=== PATIENT | male | born 1990 | race American Indian/Alaskan Native ===

== ENCOUNTER 2017-03-25 03:44 | Emergency (ER) | payer OTHER ==
[2017-03-25] MEDS ORDERED: MOTRIN ONE (06:07)
[2017-03-25] MEDS ORDERED: MOTRIN PO ONE (06:08)
--- NOTE | 2017-03-25 06:28 | Emergency Department Report ---
Chief Complaint: Fever Stated Complaint: FEVER,LIGHT HEADED,SWEATING Time Seen by Provider: 03/25/17 06:25 - HPI History of Present Illness: Patient reports that he has cough, fever and body aches 2 days. Denies any vomiting or diarrhea. - ROS Review of Systems: All systems is negative unless stated in HPI above - Exam Vital Signs: Vital Signs 03/25/17 03/25/17 04:14 04:28 Temperature 100.6 F H 100.6 F H Pulse Rate 92 H 97 H Respiratory 18 17 Rate Blood Pressure 147/100 147/100 O2 Sat by Pulse 98 99 Oximetry Physical Exam: General: His is a 26-year-old male well-nourished well-developed in no acute distress. Patient is nontoxic in appearance MSE screening note: Focused history and physical exam performed. Due to findings the following was ordered: Ibuprofen and oral hydration ED Medical Decision Making - Medical Decision Making MDM:Pt medically screened. Oral hydration started. Motrin 800 mg by mouth given. Pt to be seen by oncoming provider. ED Disposition for MSE Condition: Stable Referrals: MIK CLEMENTS MD [Primary Care Provider] - 3-5 Days
--- NOTE | 2017-03-25 07:44 | Emergency Department Report ---
Minor Respiratory - HPI Chief Complaint: Fever Stated Complaint: FEVER,LIGHT HEADED,SWEATING Time Seen by Provider: 03/25/17 06:25 Severity: moderate Minor Respiratory: Yes Rhinorrhea, Yes Sore Throat, Yes Able to Tolerate Fluids , Yes Cough, Yes Fever, No Ear Pain, No Sick Contacts, No Hemoptysis, No Chest Pain, No Shortness of Breath Other History: he is a 26-year-old male with no prior medical history who presents to ED complaining of nonproductive dry cough, runny nose and body aches times the past 3 days. Patient states he's been taking Tylenol for symptom relief. Patient stat he does not recall being around any sick contacts and has not been outside the country the past 30 days. He denies nausea, vomiting, abdominal pain, chest pain shortness of breath or any other problems. ED Review of Systems ROS: Stated complaint: FEVER,LIGHT HEADED,SWEATING Other details as noted in HPI Constitutional: denies: chills, fever Eyes: denies: eye pain, eye discharge, vision change ENT: denies: ear pain, throat pain Respiratory: denies: cough, shortness of breath, wheezing Cardiovascular: denies: chest pain, palpitations Endocrine: no symptoms reported Gastrointestinal: denies: abdominal pain, nausea, diarrhea Genitourinary: denies: urgency, dysuria Musculoskeletal: denies: back pain, joint swelling, arthralgia Skin: denies: rash, lesions Neurological: denies: headache, weakness, paresthesias Psychiatric: denies: anxiety, depression Hematological/Lymphatic: denies: easy bleeding, easy bruising ED Past Medical Hx - Past Medical History Previous Medical History?: No - Surgical History Past Surgical History?: Yes Additional Surgical History: hernia repair - Social History Smoking Status: Current Every Day Smoker Substance Use Type: None - Medications Home Medications: Home Medications Medication Instructions Recorded Confirmed Last Taken Type HYDROcodone/ACETAMINOPHEN 1 tab PO Q6H PRN 03/28/13 03/28/13 03/28/13 14:00 History [Hydrocodon-Acetaminophen 5-300 mg] oxyCODONE /ACETAMINOPHEN [Percocet 1 tab PO Q6HR PRN 03/28/13 03/28/13 03/28/13 14:00 History 5/325 mg] Naproxen Sodium [Aleve] 220 mg PO Q8H PRN #50 tablet 03/29/13 Unknown Rx D-Methorphan/PE/Acetaminophen 1 each PO Q6H #30 tablet 03/25/17 Unknown Rx [Tylenol Cold Max Day Caplet] Ibuprofen [Motrin] 800 mg PO Q8HR PRN #30 tablet 03/25/17 Unknown Rx guaiFENesin [Robitussin] 200 mg PO Q6HR #24 tablet 03/25/17 Unknown Rx Minor Respiratory Exam - Exam General: Vital signs noted. No distress. Alert and acting appropriately. HEENT: Yes Moist Mucous Membranes, No Pharyngeal Erythema, No Pharyngeal Exudates, No Rhinorrhea, No Conjuctival Injection, No Frontal Tenderness, No Maxillary Tenderness Ear: Neither TM Bulge, Neither TM Erythema, Neither EAC Pain, Neither EAC Discharge Neck: Yes Supple, No Adenopathy Lungs: Yes Good Air Exchange, No Wheezes, No Ronchi, No Stridor, No Cough, No Labored Respirations, No Retractions, No Use of Accessory Muscles, No Other Abnormal Lung Sounds Heart: Yes Regular, No Murmur Abdomen: Yes Normal Bowel Sounds, No Tenderness, No Peritoneal Signs Skin: No Rash, No Edema Neurologic: Alert and oriented, no deficits. Musculoskeletal: Unremarkable. ED Course Vital Signs 03/25/17 03/25/17 04:14 04:28 Temperature 100.6 F H 100.6 F H Pulse Rate 92 H 97 H Respiratory 18 17 Rate Blood Pressure 147/100 147/100 O2 Sat by Pulse 98 99 Oximetry ED Medical Decision Making - Radiology Data Radiology results: report reviewed, image reviewed Fluoro Time In Minutes: CHEST 2 VIEWS INDICATION: Fever, cough, malaise. COMPARISON: None similar at this institution. FINDINGS: PA and lateral chest radiographs demonstrate normal cardiomediastinal silhouette. Clear lungs. Mild thoracic levoscoliosis apex about T8. CONCLUSION: No acute disease in the chest. Thank you for the opportunity to participate in this patient's care. Transcribed By: RS Dictated By: SAKINA ALVAREZ MD Electronically Authenticated By: SAKINA ALVAREZ MD Signed Date/Time: 03/25/17 0758 - Medical Decision Making 26-year-old male presents with viral syndrome. Fever resolved no fever during the ED stay. Chest x-ray ordered. No acute findings. Discussed with mother symptomatic relief with [id number] medications. Discussed continue Tylenol and Motrin as needed for fever and pain. Discussed increase fluids and diet intake. Discussed rest much needed. Discussed daily vitamin C for immune booster. Discussed follow-up with regional commercial sales manager in 3-5 days. Patient's mother verbally states she understands and will comply the following instructions and follow-up Vital signs stable. Patient is in no acute distress Critical care attestation.: If time is entered above; I have spent that time in minutes in the direct care of this critically ill patient, excluding procedure time. ED Disposition Clinical Impression: Viral syndrome URI (upper respiratory infection) Qualifiers: URI type: unspecified URI Qualified Code(s): J06.9 - Acute upper respiratory infection, unspecified Disposition: TO HOME OR SELFCARE Is pt being admited?: No Does the pt Need Aspirin: No Condition: Stable Instructions: Upper Respiratory Infection (ED), Viral Syndrome (ED), Cold Symptoms (ED) Additional Instructions: Make sure to follow up with the primary care physician as discussed. Take all your medications as you've been prescribed. If you have any worsening symptoms or develop new symptoms please return to ED immediately. Prescriptions: D-Methorphan/PE/Acetaminophen [Tylenol Cold Max Day Caplet] 1 each PO Q6H #30 tablet guaiFENesin [Robitussin] 200 mg PO Q6HR #24 tablet Ibuprofen [Motrin] 800 mg PO Q8HR PRN #30 tablet PRN Reason: Pain Referrals: MIK CLEMENTS MD [Primary Care Provider] - 3-5 Days [facility] [Outside] - 3-5 Days [facility] [Outside] - 3-5 Days [facility] [Outside] - 3-5 Days Forms: Accompanied Note, Work/School Release Form(ED) Time of Disposition: 08:21
[2017-03-25 07:48] VITALS: BP 133/81
--- NOTE | 2017-03-25 08:06 | XRay Report ---
CHEST 2 VIEWS INDICATION: Fever, cough, malaise. COMPARISON: None similar at this institution. FINDINGS: PA and lateral chest radiographs demonstrate normal cardiomediastinal silhouette. Clear lungs. Mild thoracic levoscoliosis apex about T8. CONCLUSION: No acute disease in the chest. Thank you for the opportunity to participate in this patient's care.
== END 2017-03-25 08:26 | disposition home or self-care (01) ==
LOC: ED 03:44
DX: B34.9 Viral infection, unspecified (principal); J06.9 Acute upper respiratory infection, unspecified; F17.200 Nicotine dependence, unspecified, uncomplicated
CPT/HCPCS: 71046